=== PATIENT | male | born 1975 | race Caucasian/White ===

== ENCOUNTER 2016-10-01 17:50 | Emergency (ER) | payer SELFPAY ==
[2016-10-01] MEDS ORDERED: Sodium Chloride 0.9% 1,000 ML ONE (17:58)
[2016-10-01] MEDS ORDERED: Pantoprazole 40 MG Vial IVPUSH ONE (18:03)
[2016-10-01] MEDS ORDERED: Sodium Chloride 0.9% 10 ML Syringe FLUSH PRN (18:03)
[2016-10-01] MEDS ORDERED: Sodium Chloride 0.9% 1,000 ML IV ONE (18:03)
--- NOTE | 2016-10-01 18:05 | EDM.PDOC ---
ED HPI GENERAL MEDICAL PROBLEM - General Chief Complaint: General Stated Complaint: "vomiting blood" Time Seen by Provider: 10/01/16 18:00 Source of Information: Reports: Patient History Limitations: Reports: No Limitations - History of Present Illness INITIAL COMMENTS - FREE TEXT/NARRATIVE: History and physical: History of present illness: [Patient comes to the emergency room complaining of nausea and vomiting. He is vomiting coffee ground colored and consistency emesis. He denies any bright red blood in his vomit and in his stools. He has not had fevers or chills. He felt well prior to onset of vomiting this morning and felt well last evening. He has no history of GI bleed or chronic medical conditions. The patient does not have health insurance and he is very concerned about the cost of today's ER visit. His abdomen is tender. He is not having any burning with urination, urinary urgency or hematuria. Denies back pain. He's not had any headaches or dizziness sore throat or neck pain. No swelling to his feet or lower legs. Complains of feeling very dry. He has not been able to tell much food or fluids today due to his vomiting. He has no other complaints or concerns at this time.] Review of Systems: As per history of present illness and below otherwise all systems reviewed and negative. Past medical history: As per history of present illness and as reviewed below otherwise noncontributory. Surgical history: As per history of present illness and is reviewed below other wynne noncontributory. Social history: No reported history of drug abuse. Smokes 1 pack of cigarettes per day. Admits to alcohol use, most recent was September 29. He denies any alcohol use yesterday or today. Family history: As per history of present illness and is reviewed below otherwise noncontributory. Physical exam: HEENT: Atraumatic, normocephalic. Skin appears somewhat bowers colored. Oral mucous membranes and lips are dry. throat is clear. Lungs: Clear to auscultation, breath sounds equal bilaterally. Heart: S1-S2, regular rate and rhythm. negative for clicks, rubs, or murmur. Abdomen: Bowel sounds are normoactive throughout. No emesis while he is in the ER. Abdomen is soft and nondistended. He is tender to palpation over the epigastric area. Negative for masses, guarding and rebound. No hepatosplenomegaly. Negative for costovertebral tenderness. Pelvis: Stable, nontender. Genitourinary: Deferred. Rectal: Deferred. Extremities: His ambulatory without difficulty. Has full range of motion of upper and lower extremities. No swelling or cyanosis to his feet or lower legs. Neurovascular unremarkable. Neuro: Awake, alert, oriented. Motor and sensory unremarkable throughout. Exam nonfocal. Diagnostics: [CBC, CMP, PT/INR, urinalysis, urine drug screen, EKG] Therapeutics: [IV normal saline 2 L bolus, Protonix 80 mg IV, Zofran 4 mg IV] Impression: [Nausea and vomiting ] Plan: [EKG shows normal sinus rhythm. Urine drug screen is negative. Urinalysis shows a moderate amount of blood. White count is 14.7, hemoglobin 15.5, AST 56. patient's nausea improved significantly and he is able to sip water while in the ER. Discussed with patient that he does not appear to be having significant bleeding event but this does not rule out a small GI bleed. Recommend that patient stay overnight for observation and be seen by Dr. mccarty in the morning hospital rounds to discuss the need for an EGD. The patient states that he cannot stay in the hospital overnight and that he does not have health insurance. Offered him that he can work out a payment plan with the financial office tomorrow, in the meantime overnight observation is recommended. He again declined. He is strongly urged to follow-up with a local primary care provider in the next couple of days for reevaluation. He verbalized understanding of this conversation. we also discussed, of course, that if he feels as though he is worsening, or other concerns develop, he may return to the emergency room for reevaluation. He is not sent home with any medications or prescriptions as the cause for his nausea and vomiting is not yet determined and cannot rule out GI bleed.] Definitive disposition and diagnosis is appropriate pending reevaluation and review of above. - Related Data Allergies Allergy/AdvReac Type Severity Reaction Status Date / Time No Known Allergies Allergy Verified 10/01/16 18:01 Home Meds: Home Meds . [No Known Home Meds] 10/01/16 [History] Past Medical History - Past Health History Medical/Surgical History: Denies Medical/Surgical History - Past Surgical History HEENT Surgical History: Reports: Tonsillectomy GI Surgical History: Reports: Appendectomy Other Musculoskeletal Surgeries/Procedures:: right colar bone pin. Social & Family History - Tobacco Use Smoking Status *Q: Current Every Day Smoker Years of Tobacco use: 20 Packs/Tins Daily: 1 - Recreational Drug Use Recreational Drug Use: No ED ROS GENERAL - Review of Systems Review Of Systems: ROS reveals no pertinent complaints other than HPI. ED EXAM, GENERAL - Physical Exam Exam: See Below Course - Vital Signs Last Recorded V/S: Last Vital Signs Temp 97.6 F 10/01/16 17:57 Pulse 96 10/01/16 18:59 Resp 18 10/01/16 17:57 BP 131/69 10/01/16 18:59 Pulse Ox 96 10/01/16 17:57 - Orders/Labs/Meds Orders: Active Orders 24 hr Category Date Time Status EKG Documentation Completion [RC] STAT Care 10/01/16 18:02 Active Sodium Chloride 0.9% [Saline Flush] Med 10/01/16 18:03 Active 10 ml FLUSH ASDIRECTED PRN Saline Lock Insert [OM.PC] Stat Oth 10/01/16 18:02 Ordered Medication Orders Sodium Chloride (Saline Flush) 10 ml FLUSH ASDIRECTED PRN PRN Reason: Keep Vein Open Labs: Laboratory Tests 10/01/16 10/01/16 10/01/16 Range/Units 18:02 18:02 18:02 WBC 14.7 H (5.0-10.0) 10^3/uL RBC 5.00 (4.50-6.00) 10^6/uL Hgb 15.5 (14.0-18.0) g/dL Hct 46.9 (40.0-54.0) % MCV 93.8 (82.0-94.0) fL MCH 31.0 (27.0-32.0) pg MCHC 33.0 (33.0-38.0) g/dL RDW Coeff of Arielle 12.9 (11.0-15.0) % Plt Count 284 (150-400) 10^3/uL Neut % (Auto) 75.7 (35-85) % Lymph % (Auto) 16.9 (10-55) % Jessamine % (Auto) 7.1 (0-16) % Eos % (Auto) 0.1 (0-5) % Baso % (Auto) 0.2 (0-3) % Neut # (Auto) 11.16 H (1.80-7.00) 10^3/uL Lymph # (Auto) 2.49 (1.00-4.80) 10^3/uL Jessamine # (Auto) 1.05 H (0.00-0.80) 10^3/uL Eos # (Auto) 0.01 (0.00-0.45) 10^3/uL Baso # (Auto) 0.03 10^3/uL PT 9.5 L (9.7-12.3) SEC INR 0.88 L (0.92-1.18) Sodium 147 H (136-145) mEq/L Potassium 4.4 (3.5-5.0) mEq/L Chloride 101 (98-106) mEq/L Carbon Dioxide 19 L (21-32) mmol/L BUN 15 (7-18) mg/dL Creatinine 1.1 (0.7-1.3) mg/dL Est Cr Clr Drug Dosing 79.38 mL/min Estimated GFR (MDRD) > 60 (>=60) mL/min Glucose 65 L D (75-99) mg/dL Calcium 9.0 (8.4-10.1) mg/dL Total Bilirubin 0.5 (0.0-1.0) mg/dL AST 56 H (15-37) U/L ALT 35 (12-78) U/L Alkaline Phosphatase 105 (46-116) U/L Total Protein 7.4 (6.4-8.2) g/dL Albumin 4.2 (3.4-5.0) g/dL Urine Color (YELLOW) Urine Appearance (CLEAR) Urine pH (4.5-8.0) Ur Specific Kerens (1.003-1.020) Urine Protein (NEGATIVE) mg/dL Urine Glucose (UA) (NEGATIVE) mg/dL Urine Ketones (NEGATIVE) mg/dL Urine Occult Blood (NEGATIVE) Urine Nitrite (NEGATIVE) Urine Bilirubin (NEGATIVE) Urine Urobilinogen (0.2-1.0) EU/dL Ur Leukocyte Esterase (NEGATIVE) Urine RBC (0-5) /HPF Urine WBC (0-5) /HPF Ur Squamous Epith Cells (NOT SEEN) /HPF Urine Opiates Screen (NEGATIVE) Ur Oxycodone Screen (NEGATIVE) Urine Methadone Screen (NEGATIVE) Ur Barbiturates Screen (NEGATIVE) U Tricyclic Antidepress (NEGATIVE) Ur Phencyclidine Scrn (NEGATIVE) Ur Amphetamine Screen (NEGATIVE) U Methamphetamines Scrn (NEGATIVE) Urine MDMA Screen (NEGATIVE) U Benzodiazepines Scrn (NEGATIVE) Urine Cocaine Screen (NEGATIVE) U Marijuana (THC) Screen (NEGATIVE) 10/01/16 10/01/16 Range/Units 18:02 18:03 WBC (5.0-10.0) 10^3/uL RBC (4.50-6.00) 10^6/uL Hgb (14.0-18.0) g/dL Hct (40.0-54.0) % MCV (82.0-94.0) fL MCH (27.0-32.0) pg MCHC (33.0-38.0) g/dL RDW Coeff of Arielle (11.0-15.0) % Plt Count (150-400) 10^3/uL Neut % (Auto) (35-85) % Lymph % (Auto) (10-55) % Jessamine % (Auto) (0-16) % Eos % (Auto) (0-5) % Baso % (Auto) (0-3) % Neut # (Auto) (1.80-7.00) 10^3/uL Lymph # (Auto) (1.00-4.80) 10^3/uL Jessamine # (Auto) (0.00-0.80) 10^3/uL Eos # (Auto) (0.00-0.45) 10^3/uL Baso # (Auto) 10^3/uL PT (9.7-12.3) SEC INR (0.92-1.18) Sodium (136-145) mEq/L Potassium (3.5-5.0) mEq/L Chloride (98-106) mEq/L Carbon Dioxide (21-32) mmol/L BUN (7-18) mg/dL Creatinine (0.7-1.3) mg/dL Est Cr Clr Drug Dosing mL/min Estimated GFR (MDRD) (>=60) mL/min Glucose (75-99) mg/dL Calcium (8.4-10.1) mg/dL Total Bilirubin (0.0-1.0) mg/dL AST (15-37) U/L ALT (12-78) U/L Alkaline Phosphatase (46-116) U/L Total Protein (6.4-8.2) g/dL Albumin (3.4-5.0) g/dL Urine Color Yellow (YELLOW) Urine Appearance Clear (CLEAR) Urine pH 5.0 (4.5-8.0) Ur Specific Kerens 1.023 H (1.003-1.020) Urine Protein 100 H (NEGATIVE) mg/dL Urine Glucose (UA) Negative (NEGATIVE) mg/dL Urine Ketones 80 H (NEGATIVE) mg/dL Urine Occult Blood Moderate H (NEGATIVE) Urine Nitrite Negative (NEGATIVE) Urine Bilirubin Negative (NEGATIVE) Urine Urobilinogen 0.2 (0.2-1.0) EU/dL Ur Leukocyte Esterase Negative (NEGATIVE) Urine RBC Not seen (0-5) /HPF Urine WBC Not seen (0-5) /HPF Ur Squamous Epith Cells Occasional H (NOT SEEN) /HPF Urine Opiates Screen Negative (NEGATIVE) Ur Oxycodone Screen Negative (NEGATIVE) Urine Methadone Screen Negative (NEGATIVE) Ur Barbiturates Screen Negative (NEGATIVE) U Tricyclic Antidepress Negative (NEGATIVE) Ur Phencyclidine Scrn Negative (NEGATIVE) Ur Amphetamine Screen Negative (NEGATIVE) U Methamphetamines Scrn Negative (NEGATIVE) Urine MDMA Screen Negative (NEGATIVE) U Benzodiazepines Scrn Negative (NEGATIVE) Urine Cocaine Screen Negative (NEGATIVE) U Marijuana (THC) Screen Negative (NEGATIVE) Meds: Medications Generic Name Dose Route Start Last Admin Trade Name Freq PRN Reason Stop Dose Admin Sodium Chloride 10 ml 10/01/16 18:03 Saline Flush FLUSH ASDIRECTED PRN Keep Vein Open Discontinued Medications Generic Name Dose Route Start Last Admin Trade Name Freq PRN Reason Stop Dose Admin Sodium Chloride 1,000 mls @ 999 mls/hr 10/01/16 18:03 10/01/16 18:06 Normal Saline IV 10/01/16 19:03 999 mls/hr STAT ONE Administration Sodium Chloride Confirm 10/01/16 17:58 10/01/16 18:15 Normal Saline Administered 10/01/16 17:59 Not Given Dose 1,000 mls @ as directed .ROUTE .STK-MED ONE Ondansetron HCl 4 mg 10/01/16 18:10 10/01/16 18:15 Zofran IVPUSH 10/01/16 18:11 4 mg ONETIME ONE Administration Pantoprazole Sodium 80 mg 10/01/16 18:03 10/01/16 18:18 Protonix Iv IVPUSH 10/01/16 18:04 80 mg .BOLUS ONE Administration Departure - Departure Time of Disposition: 19:15 Disposition: Home, Self-Care 01 Preliminary Cause of *Q: Sepsis & Multi System Organ Failure Condition: Fair Clinical Impression: Nausea & vomiting Qualifiers: Vomiting type: unspecified Vomiting Intractability: non-intractable Qualified Code(s): R11.2 - Nausea with vomiting, unspecified - Discharge Information Referrals: PCP,None [Primary Care Provider] - Forms: ED Department Discharge Additional Instructions: The following information is given to patients seen in the emergency department who are being discharged home. This information is to outline your options for follow-up care and provides all patient seen in our emergency department with a follow-up referral. The need for follow-up, as well as the timing and circumstances, are variable depending upon the specifics of each emergency department visit. If you don't have a primary care physician on staff, we will provide you with a referral. We always advise to contact your personal physician following an emergency department visit to inform them of the circumstances of the visit and for follow-up with them and/or the need for any referrals to a consulting specialist. The emergency department will also refer you to a specialist when appropriate. This referral assures that you have the opportunity for follow-up care with a specialist. All of these measures are taken in an effort to provide you with optimal care, which includes your follow-up. Under all circumstances we always encourage you to contact your private physician who remains a resource for coordinating your care. When calling for follow-up care, please make the office aware that this follow-up is from your recent emergency room visit. If for any reason you are refused follow-up please contact the [facility] emergency department at [phone] and ask to speak to the emergency department nurse. [facility] [address] [address] Follow-up in above listed clinic in 48-72 hours. Return to ER as needed as discussed. - My Orders Last 24 Hours: My Active Orders 10/01/16 18:02 EKG Documentation Completion [RC] STAT Saline Lock Insert [OM.PC] Stat 10/01/16 18:03 Sodium Chloride 0.9% [Saline Flush] 10 ml FLUSH ASDIRECTED PRN - Assessment/Plan Last 24 Hours: My Active Orders 10/01/16 18:02 EKG Documentation Completion [RC] STAT Saline Lock Insert [OM.PC] Stat 10/01/16 18:03 Sodium Chloride 0.9% [Saline Flush] 10 ml FLUSH ASDIRECTED PRN
[2016-10-01] MEDS ORDERED: Ondansetron 4 MG/2 ML SDV IVPUSH ONE (18:10)
[2016-10-01 18:38] LABS: CHLORIDE,CL 101 mEq/L (98-106); SODIUM,NA 147 mEq/L (136-145)
[2016-10-01 18:59] VITALS: BP 131/69
== END 2016-10-01 19:28 | disposition home or self-care (01) ==
LOC: CC.ED 17:50
DX: R11.2 Nausea with vomiting, unspecified (principal)
CPT/HCPCS: 36415; 80053; 80305; 81001; 85025; 85610; 93005; 96361; 96374; 96375; 99284; C9113; J2405; J7030

== ENCOUNTER 2017-05-13 13:34 | Emergency (ER) | payer SELFPAY ==
[2017-05-13 13:48] VITALS: BP 108/66
[2017-05-13] MEDS ORDERED: Ondansetron 4 MG/2 ML SDV IVPUSH STA (14:08)
[2017-05-13] MEDS ORDERED: Sodium Chloride 0.9% 1,000 ML IV ONE (14:08)
== END 2017-05-13 14:25 | disposition left against medical advice (07) ==
LOC: CC.ED 13:34
DX: Z53.21 Procedure and treatment not carried out due to patient leaving prior to being seen by health care provider (principal)

== ENCOUNTER 2017-05-13 21:25 | Emergency (ER) | payer SELFPAY ==
[2017-05-13] MEDS ORDERED: LORazepam 0.5 MG Tab PO ONE (21:26)
[2017-05-13] MEDS: Lactated Ringers 1,000 ML IV ONE (21:30)
[2017-05-13] MEDS: Ondansetron 4 MG/2 ML SDV IVPUSH PRN (22:04)
[2017-05-13 22:07] LABS: CHLORIDE,CL 96 mEq/L (98-106); SODIUM,NA 137 mEq/L (136-145)
[2017-05-13] MEDS: Sodium Chloride 0.9% 1,000 ML IV ONE (22:40)
--- NOTE | 2017-05-13 22:45 | EDM.PDOC ---
ED HPI GENERAL MEDICAL PROBLEM - General Chief Complaint: Abdominal Pain Stated Complaint: SHAKING, VOMITING Time Seen by Provider: 05/13/17 21:55 Source of Information: Reports: Patient History Limitations: Reports: No Limitations - History of Present Illness INITIAL COMMENTS - FREE TEXT/NARRATIVE: Daniel is a 42 year old male who presents to the ED with complaints of vomiting, dizziness, and weakness. He reports that starting about 4 days ago he started vomiting. He has progressively felt worse. He reports he has been unable to eat or drink since Friday. He reports he feels very weak. Denies any fever, but does report he has had the chills and "can't stop shaking." He also c/o tingling in his hands. Chart review dates the numbness and tingling back to an ED visit in 2016. Denies any diarrhea, abdominal pain, chest pain, shortness of breath, focal neurological deficit, cough, wheezing. He denies any recent alcohol or drug use. Does report occasional alcohol use. Last drank on . He reports he was trying to drive to the ER this evening, but was unable to because of his weakness and dizziness. He pulled over on the side of the road and a passerby gave him a ride to the ER. They did call EMS, but private vehicle made it to the ER before intercept was made. He presented to the ED earlier today, but then subsequently left AMA prior to any lab work or IV start as he was concerned because he did not have insurance. He is very anxious about how he is going to pay for this. He voices that he knows he should've stayed earlier. He does not want much done in regards to imaging and lab work. Onset Date: 05/10/17 Duration: Getting Worse Location: Reports: Abdomen, Generalized (shaking) Associated Symptoms: Reports: Fever/Chills, Loss of Appetite, Nausea/Vomiting, Other (tremors, N/T to BUE). Denies: Confusion, Chest Pain, Cough, cough w sputum, Diaphoresis, Headaches, Malaise, Rash, Seizure, Shortness of Breath, Syncope, Weakness - Related Data Allergies Allergy/AdvReac Type Severity Reaction Status Date / Time No Known Allergies Allergy Verified 05/13/17 21:45 Home Meds: Home Meds Levofloxacin [Levaquin] 500 mg PO DAILY 7 Days tab 05/14/17 [Rx] Ondansetron HCl [Zofran] 4 mg PO Q8H #20 tablet 05/14/17 [Rx] Past Medical History - Past Health History Medical/Surgical History: Denies Medical/Surgical History Gastrointestinal History: Reports: None Genitourinary History: Reports: Renal Calculus Musculoskeletal History: Reports: Fracture - Infectious Disease History Infectious Disease History: Reports: Chicken Pox - Past Surgical History HEENT Surgical History: Reports: Tonsillectomy GI Surgical History: Reports: Appendectomy Male Surgical History: Reports: None Musculoskeletal Surgical History: Reports: ORIF, Other (See Below) Other Musculoskeletal Surgeries/Procedures:: right collar bone pin, right rib fractures Social & Family History - Family History Family Medical History: Noncontributory - Tobacco Use Smoking Status *Q: Current Every Day Smoker Years of Tobacco use: 20 Packs/Tins Daily: 1 - Caffeine Use Caffeine Use: Reports: None - Alcohol Use Days Per Week of Alcohol Use: 2 Number of Drinks Per Day: 4 Total Drinks Per Week: 8 - Recreational Drug Use Recreational Drug Use: No ED ROS GENERAL - Review of Systems Review Of Systems: See Below Constitutional: Reports: Chills, Weakness, Fatigue, Decreased Appetite. Denies : Fever HEENT: Reports: No Symptoms. Denies: Dental Pain, Eye Pain, Rhinitis, Sinus Problem, Throat Pain Respiratory: Reports: No Symptoms. Denies: Shortness of Breath, Wheezing, Pleuritic Chest Pain, Cough, Sputum, Hemoptysis Cardiovascular: Reports: Lightheadedness. Denies: Chest Pain, Blood Pressure Problem, Dyspnea on Exertion, Edema, Syncope Endocrine: Reports: Fatigue GI/Abdominal: Reports: Anorexia, Decreased Appetite, Nausea, Vomiting. Denies: Abdominal Pain, Black Stool, Bloody Stool, Constipation, Diarrhea, Distension, Hematemesis, Hematochezia, Melena : Reports: No Symptoms. Denies: Dysuria, Frequency, Urgency Musculoskeletal: Reports: No Symptoms Skin: Reports: No Symptoms Neurological: Reports: Dizziness, Numbness, Tingling, Tremors, Weakness. Denies : Confusion, Headache, Pre-Existing Deficit, Difficulty Walking Psychiatric: Reports: Anxiety Hematologic/Lymphatic: Reports: No Symptoms Immunologic: Reports: No Symptoms ED EXAM, GI/ABD - Physical Exam Exam: See Below Exam Limited By: No Limitations General Appearance: Alert, WD/WN, Moderate Distress Eyes: Bilateral: EOMI Ears: Normal External Exam, Normal Canal, Hearing Grossly Normal, Normal TMs Nose: Normal Inspection, Normal Mucosa, No Blood Throat/Mouth: Other (dry mucous membranes) Head: Atraumatic, Normocephalic Neck: Normal Inspection, Supple, Non-Tender, Full Range of Motion Respiratory/Chest: No Respiratory Distress, No Accessory Muscle Use, Chest Non- Tender, Decreased Breath Sounds. No: Crackles, Rales, Rhonchi, Wheezing Cardiovascular: Normal Peripheral Pulses, Regular Rate, Rhythm, No Edema, No Gallop, No JVD, No Murmur, No Rub GI/Abdominal Exam: Normal Bowel Sounds, Soft, Non-Tender, No Distention. No: Guarding, Rigid, Rebound, Hepatomegaly, Splenomegaly Back Exam: Normal Inspection, Full Range of Motion. No: CVA Tenderness (L), CVA Tenderness (R) Extremities: Normal Inspection, Normal Range of Motion, Non-Tender, Normal Capillary Refill, No Pedal Edema Neurological: Alert, Oriented, CN II-XII Intact, Normal Cognition, Normal Gait, Normal Reflexes, No Motor/Sensory Deficits, Other (tremor to BUE) Psychiatric: Anxious Skin Exam: Warm, Dry, Intact, Normal Color, No Rash Lymphatic: No Adenopathy Course - Vital Signs Last Recorded V/S: Last Vital Signs Temp 96.7 F 05/13/17 21:42 Pulse 101 H 05/13/17 21:42 Resp 24 H 05/13/17 21:42 BP 142/80 H 05/13/17 23:18 Pulse Ox 98 05/13/17 21:42 - Orders/Labs/Meds Orders: Active Orders 24 hr Category Date Time Status Abdomen Ltd [US] Stat Exams 05/13/17 22:47 Taken Labs: Laboratory Tests 05/13/17 05/13/17 05/13/17 Range/Units 21:53 21:53 22:48 WBC 15.6 H (5.0-10.0) 10^3/uL RBC 5.01 (4.50-6.00) 10^6/uL Hgb 16.1 (14.0-18.0) g/dL Hct 46.6 (40.0-54.0) % MCV 93.0 (82.0-94.0) fL MCH 32.1 H (27.0-32.0) pg MCHC 34.5 (33.0-38.0) g/dL RDW Coeff of Arielle 13.4 (11.0-15.0) % Plt Count 267 (150-400) 10^3/uL Neut % (Auto) 81.0 (35-85) % Lymph % (Auto) 8.7 L (10-55) % [place] % (Auto) 10.2 (0-16) % Eos % (Auto) 0 (0-5) % Baso % (Auto) 0.1 (0-3) % Neut # (Auto) 12.63 H (1.80-7.00) 10^3/uL Lymph # (Auto) 1.36 (1.00-4.80) 10^3/uL [place] # (Auto) 1.59 H (0.00-0.80) 10^3/uL Eos # (Auto) 0.00 (0.00-0.45) 10^3/uL Baso # (Auto) 0.02 10^3/uL Sodium 137 (136-145) mEq/L Potassium 3.6 (3.5-5.0) mEq/L Chloride 96 L (98-106) mEq/L Carbon Dioxide 25 (21-32) mmol/L BUN 15 (7-18) mg/dL Creatinine 1.6 H (0.7-1.3) mg/dL Est Cr Clr Drug Dosing 55.30 mL/min Estimated GFR (MDRD) 48 L (>=60) mL/min Glucose 167 H D (75-99) mg/dL Calcium 9.5 (8.4-10.1) mg/dL Magnesium 1.5 L (1.8-2.4) mg/dL Total Bilirubin 2.2 H (0.0-1.0) mg/dL AST 98 H (15-37) U/L ALT 52 (12-78) U/L Alkaline Phosphatase 131 H (46-116) U/L C-Reactive Protein < 0.2 L (0.2-0.8) mg/dL Total Protein 6.6 (6.4-8.2) g/dL Albumin 3.6 (3.4-5.0) g/dL Urine Color [place] (YELLOW) Urine Appearance Clear (CLEAR) Urine pH 8.5 H (4.5-8.0) Ur Specific [place] 1.015 (1.003-1.020) Urine Protein 30 H (NEGATIVE) mg/dL Urine Glucose (UA) Negative (NEGATIVE) mg/dL Urine Ketones Negative (NEGATIVE) mg/dL Urine Occult Blood Negative (NEGATIVE) Urine Nitrite Negative (NEGATIVE) Urine Bilirubin Negative (NEGATIVE) Urine Urobilinogen 0.2 (0.2-1.0) EU/dL Ur Leukocyte Esterase Negative (NEGATIVE) Urine RBC 0-5 (0-5) /HPF Urine WBC Not seen (0-5) /HPF Ur Epithelial Cells Few H (NOT SEEN) /HPF Meds: Medications Discontinued Medications Generic Name Dose Route Start Last Admin Trade Name Freq PRN Reason Stop Dose Admin Ceftriaxone Sodium 1 gm 05/14/17 00:12 05/14/17 00:20 Rocephin IVPUSH 05/14/17 00:13 1 gm ONETIME ONE Administration Lactated Ringer's 1,000 mls @ 999 mls/hr 05/13/17 21:30 05/13/17 21:30 Ringers, Lactated IV 05/13/17 22:30 999 mls/hr .BOLUS ONE Administration Magnesium Sulfate/Dextrose 1 100 mls @ 100 mls/hr 05/13/17 22:15 05/13/17 22: 59 gm/ Premix IV 05/13/17 23:14 100 mls/hr ONETIME ONE Administration Sodium Chloride 1,000 mls @ 500 mls/hr 05/13/17 22:36 05/13/17 22:40 Normal Saline IV 05/14/17 00:35 500 mls/hr .BOLUS ONE Administration Lorazepam 1 packet 05/14/17 00:18 05/14/17 00:29 Take Home: Lorazepam 0.5 Mg, 2 Tab Pack PO 05/14/17 00:19 1 packet ONETIME ONE Administration Lorazepam 1 mg 05/13/17 21:26 Ativan PO 05/13/17 21:27 .STK-MED ONE Ondansetron HCl 4 mg 05/13/17 22:01 05/13/17 22:04 Zofran IVPUSH 4 mg Q6H PRN Administration Nausea/Vomiting - Re-Assessments/Exams Free Text/Narrative Re-Assessment/Exam: Discussed lab results with patient. Discussed that I would like to do imaging to better figure out what is going on. Patient does not want extensive imaging. Agreed to US of abdomen to r/o pancreatitis and cholecystitis given elevated bilirubin. Patient continues to deny any abdominal pain. US abdomen WNL per radiographer angiogram. Do not have final radiologist report. His nausea and shaking improved greatly with IVF. Discussed that I would like to get CXR given elevated WBC and decreased breath sounds, to which patient refused. I strongly encourage patient to let us admit him to overnight observation for continued IVF and treatment. Patient refused this. He wishes to go home as he does not feel he can pay for services. He reports he is feeling much better after receiving fluids and nausea medication. Continues to feel weak and fatigued. He has not been able to sleep in the last few days. He is requesting something to help him sleep tonight. Discussed that since we don't have an obvious source of infection and he does not want any additional labs or imaging, we will treat with broad spectrum antibiotics given neutrophilic leukocytosis. Patient agreeable to this. He refuses to stay here and refuses to have any further workup due to cost. Departure - Departure Time of Disposition: 00:36 Disposition: Home, Self-Care 01 Clinical Impression: Bronchiolitis, Acute renal insufficiency, Gastroenteritis - Discharge Information Prescriptions: Levofloxacin [Levaquin] 500 mg PO DAILY 7 Days tab Ondansetron HCl [Zofran] 4 mg PO Q8H #20 tablet Instructions: Acute Bronchitis, Adult, Nausea and Vomiting, Adult, [id number] , Acute Bronchitis, Adult, [id number] Referrals: PCP,None [Primary Care Provider] - Forms: ED Department Discharge Additional Instructions: Meds as prescribed Push fluids as much as possible Zofran as needed for nausea. Take prior to oral intake. 2 doses of ativan sent with patient. Instructed to take 1 tab at night. Recommend clear liquid diet until nausea resolves. Then start introducing bland diet, such as toast and crackers. Advance diet as tolerated. Return to clinic if symptoms worsen or do not improve. Notify clinic if no improvement in symptoms. - My Orders Last 24 Hours: My Active Orders 05/13/17 22:47 Abdomen Ltd [US] Stat - Assessment/Plan Last 24 Hours: My Active Orders 05/13/17 22:47 Abdomen Ltd [US] Stat
[2017-05-13 23:18] VITALS: BP 142/80
[2017-05-14] MEDS: cefTRIAXone 1 GM Vial IVPUSH ONE (00:20)
[2017-05-14] MEDS: Take Home: LORazepam 0.5 MG Tab, 2 Tab Pack PO ONE (00:29)
== END 2017-05-14 01:05 | disposition home or self-care (01) ==
LOC: CC.ED 21:25
DX: K52.9 Noninfective gastroenteritis and colitis, unspecified (principal); J21.9 Acute bronchiolitis, unspecified; N28.9 Disorder of kidney and ureter, unspecified; Z79.899 Other long term (current) drug therapy; F17.210 Nicotine dependence, cigarettes, uncomplicated
CPT/HCPCS: 36415; 76705; 80053; 81001; 83735; 85025; 86140; 96361; 96365; 96375; 99285; A9270-GY; J0696; J2405; J3475; J7030; J7120

== ENCOUNTER 2018-05-04 13:40 | Emergency (ER) | payer SELFPAY ==
[2018-05-04] MEDS: Lactated Ringers 1,000 ML IV SCH (14:24)
[2018-05-04] MEDS: Ondansetron 4 MG/2 ML SDV IVPUSH PRN (14:28)
--- NOTE | 2018-05-04 14:31 | EDM.PDOC ---
ED HPI GENERAL MEDICAL PROBLEM - General Chief Complaint: General Stated Complaint: "I think I am going to faint" Time Seen by Provider: 05/04/18 13:55 Source of Information: Reports: Patient History Limitations: Reports: No Limitations - History of Present Illness INITIAL COMMENTS - FREE TEXT/NARRATIVE: Patient presents to ER with "not feeling well". He feels lightheaded, felt like he was going to faint. Relates he awoke at 5 am today with concerns of nausea. Has not been able to eat today as a result. Has been trying to drink water but vomits it up. "feels like my heart is racing". He had a headache last evening/early am but that is now gone. No diarrhea. No abdominal pain. No fevers. Denies cough, shortness of breath or chest pain. Was at home yesterday. No alcohol consumption. 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 Onset: Today Duration: Hour(s): Location: Reports: Generalized Severity: Moderate Associated Symptoms: Reports: Headaches, Loss of Appetite, Nausea/Vomiting, Syncope, Weakness. Denies: Confusion, Chest Pain, Cough, Fever/Chills, Shortness of Breath - Related Data Allergies Allergy/AdvReac Type Severity Reaction Status Date / Time No Known Allergies Allergy Verified 05/04/18 13:49 Home Meds: Home Meds . [No Known Home Meds] 05/04/18 [History] Past Medical History - Past Health History Medical/Surgical History: Denies Medical/Surgical History Gastrointestinal History: Reports: None Genitourinary History: Reports: Renal Calculus Musculoskeletal History: Reports: Fracture - Infectious Disease History Infectious Disease History: Reports: Chicken Pox - Past Surgical History HEENT Surgical History: Reports: Tonsillectomy GI Surgical History: Reports: Appendectomy Male Surgical History: Reports: None Musculoskeletal Surgical History: Reports: ORIF, Other (See Below) Other Musculoskeletal Surgeries/Procedures:: right collar bone pin, right rib fractures Social & Family History - Family History Family Medical History: Noncontributory - Caffeine Use Caffeine Use: Reports: None ED ROS GENERAL - Review of Systems Review Of Systems: See Below Constitutional: Reports: Malaise, Weakness, Fatigue, Decreased Appetite. Denies : Fever, Chills, Diaphoresis HEENT: Denies: Ear Pain, Rhinitis, Throat Pain, Vertigo, Vision Change Respiratory: Denies: Shortness of Breath, Cough Cardiovascular: Reports: Lightheadedness. Denies: Chest Pain, Edema Endocrine: Reports: Fatigue GI/Abdominal: Reports: Nausea, Vomiting. Denies: Abdominal Pain, Constipation, Diarrhea : Reports: No Symptoms Musculoskeletal: Reports: No Symptoms Skin: Reports: No Symptoms Neurological: Reports: Headache, Syncope, Weakness ED EXAM, GENERAL - Physical Exam Exam: See Below Exam Limited By: No Limitations General Appearance: Alert, WD/WN, No Apparent Distress Ears: Normal External Exam, Normal TMs Nose: Normal Inspection, Normal Mucosa, No Blood Throat/Mouth: Normal Inspection, Normal Oropharynx Head: Normocephalic Neck: Normal Inspection, Supple, Non-Tender Respiratory/Chest: No Respiratory Distress, Lungs Clear, Normal Breath Sounds Cardiovascular: Regular Rate, Rhythm GI/Abdominal: Normal Bowel Sounds, Soft, Non-Tender Extremities: Normal Inspection, Normal Capillary Refill Neurological: Alert, Oriented Skin Exam: Warm, Dry Course - Vital Signs Last Recorded V/S: Last Vital Signs Temp 96.6 F 05/04/18 14:49 Pulse 102 H 05/04/18 14:49 Resp 20 05/04/18 14:49 BP 149/77 H 05/04/18 14:49 Pulse Ox 97 05/04/18 14:49 - Orders/Labs/Meds Orders: Active Orders 24 hr Category Date Time Status Abdomen 2V AP Flat Upright [CR] Stat Exams 05/04/18 14:42 Taken Lactated Ringers [Ringers, Lactated] 1,000 ml Med 05/04/18 14:15 Active IV ASDIRECTED Ondansetron [Zofran] Med 05/04/18 14:10 Active 4 mg IVPUSH Q6H PRN Medication Orders Lactated Ringer's (Ringers, Lactated) 1,000 mls @ 250 mls/hr IV ASDIRECTED WARNER Last Admin: 05/04/18 14:24 Dose: 250 mls/hr Ondansetron HCl (Zofran) 4 mg IVPUSH Q6H PRN PRN Reason: Nausea Last Admin: 05/04/18 14:28 Dose: 4 mg Labs: Laboratory Tests 05/04/18 05/04/18 05/04/18 Range/Units 13:57 14:05 14:10 WBC 18.8 H (5.0-10.0) 10^3/uL RBC 4.44 L (4.50-6.00) 10^6/uL Hgb 14.0 (14.0-18.0) g/dL Hct 43.1 (40.0-54.0) % MCV 97.1 H (82.0-94.0) fL MCH 31.5 (27.0-32.0) pg MCHC 32.5 L (33.0-38.0) g/dL RDW Coeff of Arielle 13.7 (11.0-15.0) % Plt Count 394 (150-400) 10^3/uL Add Manual Diff Yes Neutrophils % (Manual) 81 (35-85) % Band Neutrophils % 1 (0-5) % Lymphocytes % (Manual) 10 L (21-55) % Monocytes % (Manual) 8 (2-12) % Vacuolated Monocytes 1+ slight H (NOT SEEN) D-Dimer, Quantitative 0.87 H (0.00-0.50) Sodium 141 (136-145) mEq/L Potassium 4.4 D (3.5-5.0) mEq/L Chloride 102 (98-106) mEq/L Carbon Dioxide 14 L D (21-32) mmol/L BUN 21 H (7-18) mg/dL Creatinine 1.0 (0.7-1.3) mg/dL Est Cr Clr Drug Dosing 91.66 mL/min Estimated GFR (MDRD) > 60 (>=60) mL/min Glucose 49 L D (75-99) mg/dL Calcium 8.6 (8.4-10.1) mg/dL Lactate Dehydrogenase 157 (100-190) U/L Creatine Kinase 115 (35-232) U/L Troponin I < 0.017 (0.00-0.06) ng/mL C-Reactive Protein 0.3 (0.2-0.8) mg/dL Urine Color (YELLOW) Urine Appearance (CLEAR) Urine pH (4.5-8.0) Ur Specific [place] (1.003-1.020) Urine Protein (NEGATIVE) mg/dL Urine Glucose (UA) (NEGATIVE) mg/dL Urine Ketones (NEGATIVE) mg/dL Urine Occult Blood (NEGATIVE) Urine Nitrite (NEGATIVE) Urine Bilirubin (NEGATIVE) Urine Urobilinogen (0.2-1.0) EU/dL Ur Leukocyte Esterase (NEGATIVE) Urine RBC (0-5) /HPF Urine WBC (0-5) /HPF Urine Bacteria (NOT SEEN) /HPF Urine Opiates Screen (NEGATIVE) Ur Oxycodone Screen (NEGATIVE) Urine Methadone Screen (NEGATIVE) Ur Barbiturates Screen (NEGATIVE) U Tricyclic Antidepress (NEGATIVE) Ur Phencyclidine Scrn (NEGATIVE) Ur Amphetamine Screen (NEGATIVE) U Methamphetamines Scrn (NEGATIVE) Urine MDMA Screen (NEGATIVE) U Benzodiazepines Scrn (NEGATIVE) Urine Cocaine Screen (NEGATIVE) U Marijuana (THC) Screen (NEGATIVE) 05/04/18 05/04/18 Range/Units 14:50 14:50 WBC (5.0-10.0) 10^3/uL RBC (4.50-6.00) 10^6/uL Hgb (14.0-18.0) g/dL Hct (40.0-54.0) % MCV (82.0-94.0) fL MCH (27.0-32.0) pg MCHC (33.0-38.0) g/dL RDW Coeff of Arielle (11.0-15.0) % Plt Count (150-400) 10^3/uL Add Manual Diff Neutrophils % (Manual) (35-85) % Band Neutrophils % (0-5) % Lymphocytes % (Manual) (21-55) % Monocytes % (Manual) (2-12) % Vacuolated Monocytes (NOT SEEN) D-Dimer, Quantitative (0.00-0.50) Sodium (136-145) mEq/L Potassium (3.5-5.0) mEq/L Chloride (98-106) mEq/L Carbon Dioxide (21-32) mmol/L BUN (7-18) mg/dL Creatinine (0.7-1.3) mg/dL Est Cr Clr Drug Dosing mL/min Estimated GFR (MDRD) (>=60) mL/min Glucose (75-99) mg/dL Calcium (8.4-10.1) mg/dL Lactate Dehydrogenase (100-190) U/L Creatine Kinase (35-232) U/L Troponin I (0.00-0.06) ng/mL C-Reactive Protein (0.2-0.8) mg/dL Urine Color Yellow (YELLOW) Urine Appearance Clear (CLEAR) Urine pH 5.0 (4.5-8.0) Ur Specific [place] >= 1.030 H (1.003-1.020) Urine Protein 30 H (NEGATIVE) mg/dL Urine Glucose (UA) Negative (NEGATIVE) mg/dL Urine Ketones 80 H (NEGATIVE) mg/dL Urine Occult Blood Small H (NEGATIVE) Urine Nitrite Negative (NEGATIVE) Urine Bilirubin Negative (NEGATIVE) Urine Urobilinogen 0.2 (0.2-1.0) EU/dL Ur Leukocyte Esterase Negative (NEGATIVE) Urine RBC 0-5 (0-5) /HPF Urine WBC Not seen (0-5) /HPF Urine Bacteria Few H (NOT SEEN) /HPF Urine Opiates Screen Negative (NEGATIVE) Ur Oxycodone Screen Negative (NEGATIVE) Urine Methadone Screen Negative (NEGATIVE) Ur Barbiturates Screen Negative (NEGATIVE) U Tricyclic Antidepress Negative (NEGATIVE) Ur Phencyclidine Scrn Negative (NEGATIVE) Ur Amphetamine Screen Negative (NEGATIVE) U Methamphetamines Scrn Negative (NEGATIVE) Urine MDMA Screen Negative (NEGATIVE) U Benzodiazepines Scrn Negative (NEGATIVE) Urine Cocaine Screen Negative (NEGATIVE) U Marijuana (THC) Screen Negative (NEGATIVE) Meds: Medications Generic Name Dose Route Start Last Admin Trade Name Freq PRN Reason Stop Dose Admin Lactated Ringer's 1,000 mls @ 250 mls/hr 05/04/18 14:15 05/04/18 14:24 Ringers, Lactated IV 250 mls/hr ASDIRECTED WARNER Administration Ondansetron HCl 4 mg 05/04/18 14:10 05/04/18 14:28 Zofran IVPUSH 4 mg Q6H PRN Administration Nausea - Re-Assessments/Exams Free Text/Narrative Re-Assessment/Exam: 05/04/18 Lab results reviewed. Patient's blood sugar low. Urine shows a specific gravity of greater than 1.030. LR infusing. Did have large liquid emesis, Zofran given 1530-Patient feeling better. Was given juice after the Zofran and tolerated well. Blood sugar now in the 90s. 05/04/18 16:53 Patient doing well. No further nausea. Will give him some toast, see how he tolerates and discharge home. Departure - Departure Time of Disposition: 16:54 Disposition: Home, Self-Care 01 Condition: Good Clinical Impression: Gastroenteritis - Discharge Information *PRESCRIPTION DRUG MONITORING PROGRAM REVIEWED*: No *COPY OF PRESCRIPTION DRUG MONITORING REPORT IN PATIENT SHAISTA: No Forms: ED Department Discharge Additional Instructions: 1. Push fluids 2. Small frequent meals 3. Zofran 4 mg every 6 hours as needed for nausea/vomiting 4. Follow up if persisting concerns. - My Orders Last 24 Hours: My Active Orders 05/04/18 14:10 Ondansetron [Zofran] 4 mg IVPUSH Q6H PRN 05/04/18 14:15 Lactated Ringers [Ringers, Lactated] 1,000 ml IV ASDIRECTED 05/04/18 14:42 Abdomen 2V AP Flat Upright [CR] Stat - Assessment/Plan Last 24 Hours: My Active Orders 05/04/18 14:10 Ondansetron [Zofran] 4 mg IVPUSH Q6H PRN 05/04/18 14:15 Lactated Ringers [Ringers, Lactated] 1,000 ml IV ASDIRECTED 05/04/18 14:42 Abdomen 2V AP Flat Upright [CR] Stat
[2018-05-04 14:34] LABS: CHLORIDE,CL 102 mEq/L (98-106); SODIUM,NA 141 mEq/L (136-145)
[2018-05-04 14:49] VITALS: BP 149/77
== END 2018-05-04 17:28 | disposition home or self-care (01) ==
LOC: CC.ED 13:40
DX: K52.9 Noninfective gastroenteritis and colitis, unspecified (principal)
CPT/HCPCS: 36415; 74019; 80048; 80305-QW; 81001; 82550; 82962; 83615; 84484; 85025; 85379; 86140; 93005; 96361; 96374; 99284; J2405; J7120

== ENCOUNTER 2018-08-27 11:34 | Observation (INO) | payer SELFPAY ==
[2018-08-27] MEDS ORDERED: Promethazine 25 MG in Sodium Chloride 0.9% 50 ML IV PRN (11:51)
--- NOTE | 2018-08-27 12:03 | EDM.PDOC ---
ED HPI GENERAL MEDICAL PROBLEM - General Chief Complaint: General Stated Complaint: increased pulse; sweaty Time Seen by Provider: 08/27/18 11:43 Source of Information: Reports: Patient History Limitations: Reports: No Limitations - History of Present Illness INITIAL COMMENTS - FREE TEXT/NARRATIVE: Patient presents to ER per EMS with complaints of dizziness, weakness. States has been having issues with vertigo for the last 3 days. 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 Was diagnosed with vertigo, started on meclizine and was here yesterday for canalith repositioning. He did feel that helped him somewhat. Was out mowing his lawn this am "when it hit really bad again". He admits he has not taken his meclizine today, was advised to by EMS and feels it is a little better now. States "it feels awful, start to panic then and hyperventilate". He does have a headache now. No chest pain. No fevers. No shortness of breath. Has had considerable nausea, no vomiting. Denies any double or blurred vision but the "room spins". No weakness in arms or legs. Onset: Gradual Duration: Day(s):, Waxing/Waning Location: Reports: Head Severity: Moderate Improves with: Reports: Medication, Other (canalith repositioning) Worsens with: Reports: Movement Associated Symptoms: Reports: Headaches, Nausea/Vomiting, Weakness. 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) - Related Data Allergies Allergy/AdvReac Type Severity Reaction Status Date / Time No Known Allergies Allergy Verified 08/27/18 11:42 Home Meds: Home Meds Meclizine HCl [Motion Sickness Relief] 1 tab PO TID PRN 08/27/18 [History] Past Medical History - Past Health History Medical/Surgical History: Denies Medical/Surgical History Gastrointestinal History: Reports: None Genitourinary History: Reports: Renal Calculus Musculoskeletal History: Reports: Fracture - Infectious Disease History Infectious Disease History: Reports: Chicken Pox - Past Surgical History HEENT Surgical History: Reports: Tonsillectomy GI Surgical History: Reports: Appendectomy Male Surgical History: Reports: None Musculoskeletal Surgical History: Reports: ORIF, Other (See Below) Other Musculoskeletal Surgeries/Procedures:: right collar bone pin, right rib fractures Social & Family History - Family History Family Medical History: Noncontributory - Tobacco Use Smoking Status *Q: Current Every Day Smoker - Caffeine Use Caffeine Use: Reports: None ED ROS GENERAL - Review of Systems Review Of Systems: See Below Constitutional: Reports: Malaise, Weakness, Fatigue. Denies: Fever, Chills, Decreased Appetite HEENT: Reports: Vertigo. Denies: Ear Pain, Rhinitis, Throat Pain, Vision Change Respiratory: Denies: Shortness of Breath, Cough Cardiovascular: Reports: Lightheadedness. Denies: Chest Pain, Edema Endocrine: Reports: Fatigue GI/Abdominal: Reports: Nausea. Denies: Abdominal Pain, Vomiting : Reports: No Symptoms Musculoskeletal: Reports: No Symptoms Skin: Reports: No Symptoms Neurological: Reports: Dizziness, Headache, Weakness Psychiatric: Reports: Anxiety ED EXAM, GENERAL - Physical Exam Exam: See Below Exam Limited By: No Limitations General Appearance: Alert, WD/WN, No Apparent Distress Ears: Normal External Exam, Normal TMs Nose: Normal Inspection, Normal Mucosa, No Blood Throat/Mouth: Normal Inspection, Normal Oropharynx Head: Normocephalic Neck: Normal Inspection, Supple, Non-Tender Respiratory/Chest: No Respiratory Distress, Lungs Clear, Normal Breath Sounds Cardiovascular: Regular Rate, Rhythm GI/Abdominal: Normal Bowel Sounds, Soft, Non-Tender Extremities: Normal Inspection, No Pedal Edema Neurological: Alert, Oriented Psychiatric: Anxious Skin Exam: Warm, Dry Course - Vital Signs Last Recorded V/S: Last Vital Signs Temp 99 F 08/27/18 11:34 Pulse 77 08/27/18 11:34 Resp 18 08/27/18 11:34 BP 132/88 08/27/18 11:34 Pulse Ox 98 08/27/18 11:34 - Orders/Labs/Meds Orders: Active Orders 24 hr Category Date Time Status Patient Status Manage Transfer [TRANSFER] Routine ADT 08/27/18 12:22 Ordered Telemetry Monitoring [Cardiac Monitoring] [RC] . Care 08/27/18 11:29 Active DIRECTED Chest 1V Frontal [CR] Stat Exams 08/27/18 11:29 Taken Head wo Cont [CT] Stat Exams 08/27/18 11:55 Taken Lactated Ringers [Ringers, Lactated] 1,000 ml Med 08/27/18 12:00 Active IV ASDIRECTED Promethazine [Phenergan] 25 mg Med 08/27/18 11:51 Active Sodium Chloride 0.9% [Normal Saline] 50 ml IV Q6H Resuscitation Status Routine Resus Stat 08/27/18 12:23 Ordered EKG 12 Lead [EK] Routine Ther 08/27/18 11:29 Ordered Medication Orders Promethazine HCl 25 mg/ Sodium (Chloride) 51 mls @ 100 mls/hr IV Q6H PRN PRN Reason: Dizziness Last Admin: 08/27/18 11:57 Dose: 100 mls/hr Lactated Ringer's (Ringers, Lactated) 1,000 mls @ 125 mls/hr IV ASDIRECTED [facility] Labs: Laboratory Tests 08/27/18 08/27/18 08/27/18 Range/Units 11:42 11:42 11:42 WBC 17.7 H (5.0-10.0) 10^3/uL RBC 5.01 (4.50-6.00) 10^6/uL Hgb 15.9 (14.0-18.0) g/dL Hct 45.8 (40.0-54.0) % MCV 91.4 (82.0-94.0) fL MCH 31.7 (27.0-32.0) pg MCHC 34.7 (33.0-38.0) g/dL RDW Coeff of Arielle 12.8 (11.0-15.0) % Plt Count 339 (150-400) 10^3/uL Neut % (Auto) 78.9 (35-85) % Lymph % (Auto) 15.1 (10-55) % [place] % (Auto) 5.7 (0-16) % Eos % (Auto) 0.2 (0-5) % Baso % (Auto) 0.1 (0-3) % Neut # (Auto) 13.96 H (1.80-7.00) 10^3/uL Lymph # (Auto) 2.66 (1.00-4.80) 10^3/uL [place] # (Auto) 1.00 H (0.00-0.80) 10^3/uL Eos # (Auto) 0.03 (0.00-0.45) 10^3/uL Baso # (Auto) 0.02 10^3/uL PT 10.5 (9.7-12.3) SEC INR 1.02 (0.92-1.18) APTT 27.6 (23.2-32.3) SEC Sodium 141 (136-145) mEq/L Potassium 4.0 (3.5-5.0) mEq/L Chloride 106 (98-106) mEq/L Carbon Dioxide 23 D (21-32) mmol/L BUN 14 (7-18) mg/dL Creatinine 1.1 (0.7-1.3) mg/dL Est Cr Clr Drug Dosing TNP Estimated GFR (MDRD) > 60 (>=60) mL/min Glucose 93 D (75-99) mg/dL Calcium 9.0 (8.4-10.1) mg/dL Lactate Dehydrogenase 169 (100-190) U/L Creatine Kinase 79 (35-232) U/L Troponin I < 0.017 (0.00-0.06) ng/mL Meds: Medications Generic Name Dose Route Start Last Admin Trade Name Freq PRN Reason Stop Dose Admin Promethazine HCl 25 mg/ Sodium 51 mls @ 100 mls/hr 08/27/18 11:51 08/27/18 11 :57 Chloride IV 100 mls/hr Q6H PRN Administration Dizziness Lactated Ringer's 1,000 mls @ 125 mls/hr 08/27/18 12:00 Ringers, Lactated IV ASDIRECTED WARNER - Re-Assessments/Exams Free Text/Narrative Re-Assessment/Exam: 08/27/18 12:27 Labs noted. WBC is elevated at 17.7, CRP and BMP all normal. EKG and troponin normal. Awaiting CT scan report. Will admit observation. IV fluids, meds and PT for canalith repositioning if patient able to tolerate. Dr. Helton aware of admission and agrees with plan. Departure - Departure Time of Disposition: 12:28 Disposition: Refer to Observation Condition: Fair Clinical Impression: Vertigo - Discharge Information *PRESCRIPTION DRUG MONITORING PROGRAM REVIEWED*: No *COPY OF PRESCRIPTION DRUG MONITORING REPORT IN PATIENT SHAISTA: No Forms: ED Department Discharge - Problem List & Annotations (1) Vertigo SNOMED Code(s): 646643182 Code(s): R42 - DIZZINESS AND GIDDINESS Status: Acute Priority: High Current Visit: Yes - Problem List Review Problem List Initiated/Reviewed/Updated: Yes - My Orders Last 24 Hours: My Active Orders 08/27/18 11:29 Telemetry Monitoring [Cardiac Monitoring] [RC] . DIRECTED Chest 1V Frontal [CR] Stat EKG 12 Lead [EK] Routine 08/27/18 11:51 Promethazine [Phenergan] 25 mg Sodium Chloride 0.9% [Normal Saline] 50 ml IV Q6H 08/27/18 11:55 Head wo Cont [CT] Stat 08/27/18 12:00 Lactated Ringers [Ringers, Lactated] 1,000 ml IV ASDIRECTED 08/27/18 12:22 Patient Status Manage Transfer [TRANSFER] Routine 08/27/18 12:23 Resuscitation Status Routine - Assessment/Plan Admission H&P: Please use this note as an admission H&P Last 24 Hours: My Active Orders 08/27/18 11:29 Telemetry Monitoring [Cardiac Monitoring] [RC] . DIRECTED Chest 1V Frontal [CR] Stat EKG 12 Lead [EK] Routine 08/27/18 11:51 Promethazine [Phenergan] 25 mg Sodium Chloride 0.9% [Normal Saline] 50 ml IV Q6H 08/27/18 11:55 Head wo Cont [CT] Stat 08/27/18 12:00 Lactated Ringers [Ringers, Lactated] 1,000 ml IV ASDIRECTED 08/27/18 12:22 Patient Status Manage Transfer [TRANSFER] Routine 08/27/18 12:23 Resuscitation Status Routine Assessment:: Vertigo Plan: Admit observation
[2018-08-27 12:06] LABS: CHLORIDE,CL 106 mEq/L (98-106); SODIUM,NA 141 mEq/L (136-145)
[2018-08-27] MEDS ORDERED: Sodium Chloride 0.9% 10 ML Syringe FLUSH PRN (12:46)
[2018-08-27] MEDS ORDERED: Ondansetron 4 MG/2 ML SDV IV PRN (12:46)
[2018-08-27] MEDS ORDERED: Ondansetron 4 MG Tab.DIS PO PRN (12:46)
[2018-08-27] MEDS ORDERED: Promethazine 25 MG Tab PO PRN (12:46)
[2018-08-27] MEDS: Lactated Ringers 1,000 ML IV SCH ×2 (12:57→19:58)
[2018-08-27] MEDS ORDERED: MECLIZINE 12.5 MG PO SCH (14:00)
[2018-08-27] MEDS: MECLIZINE 25 MG PO SCH ×2 (14:28→19:58)
[2018-08-28] MEDS: MECLIZINE 25 MG PO SCH (07:32)
[2018-08-28 07:55] VITALS: BP 133/78
--- NOTE | 2018-08-28 08:00 | PCM.DCSUM1 ---
Discharge Summary - Hospital Course HPI Initial Comments: Daniel is a 43 year old male who was admitted to the hospital from the ED yesterday 08/27/2018. He had had a couple episodes of severe vertigo, to the point where he couldn't walk. He was admitted and given IV Phenergan and IVF. PT did see and performed canlith repositioning. He reports he has not had any episodes of vertigo since admission. Wishes to discharge home. He will be discharged home on his oral meclizine to be taken three times daily as needed. He is advised to follow up with his PCP in the next 1-2 weeks to recheck his lab work. Lab work reveals elevated WBC, which has been chronically elevated for the past few years, but otherwise stable. - Discharge Data Discharge Date: 08/28/18 Discharge Disposition: Home, Self-Care 01 Condition: Good - Discharge Diagnosis/Problem(s) (1) Vertigo SNOMED Code(s): 148547438 ICD Code: R42 - DIZZINESS AND GIDDINESS Status: Acute Priority: High Current Visit: Yes - Patient Summary/Data Consults: Consultations 08/27/18 12:46 PT Evaluation and Treatment [CONS] Routine - Patient Instructions Diet: Usual Diet as Tolerated Activity: As Tolerated, No Strenuous Activities, Rest and Relax Today Activity, Other: No sudden neck movements/turning neck for next week, Sleep in upright pos - Discharge Plan *PRESCRIPTION DRUG MONITORING PROGRAM REVIEWED*: No *COPY OF PRESCRIPTION DRUG MONITORING REPORT IN PATIENT SHAISTA: No Home Medications: Home Meds Meclizine HCl [Motion Sickness Relief] 1 tab PO TID PRN 08/27/18 [History] Patient Handouts: Benign Positional Vertigo Forms: ED Department Discharge Referrals: Kristi Rebolledo PA [Emergency Provider] - - Discharge Summary/Plan Comment DC Time >30 min.: No Discharge Summary/Plan Comment: - Continue Meclizine three times daily as needed - Recommend sleeping in upright position the next few nights - Rest and take it easy the next few days - Avoid sudden movements of head/neck - Recommend follow up with Pam PCP in the next week to recheck CBC given chronically elevated WBCs - General Info Date of Service: 08/28/18 Admission Dx/Problem (Free Text: Vertigo Subjective Update: Daniel reports he is doing well. Has not had any episodes of dizziness since admit. Has been tolerating a general diet and ambulating without difficulty. He denies any concerns. Functional Status: Reports: Pain Controlled, Tolerating Diet, Ambulating, Urinating. Denies: New Symptoms - Review of Systems General: Reports: No Symptoms Pulmonary: Reports: No Symptoms Cardiovascular: Reports: No Symptoms Gastrointestinal: Reports: No Symptoms Musculoskeletal: Reports: No Symptoms Neurological: Reports: No Symptoms Psychiatric: Reports: No Symptoms - Patient Data Vitals - Most Recent: Last Vital Signs Temp 97.7 F 08/28/18 07:54 Pulse 72 08/28/18 07:54 Resp 16 08/28/18 07:54 BP 133/78 08/28/18 07:54 Pulse Ox 100 08/28/18 07:54 Weight - Most Recent: 146 lb 4.8 oz I&O - Last 24 hours: Intake & Output 08/27/18 08/28/18 08/28/18 22:59 06:59 14:59 Intake Total 877 Balance 877 Lab Results - Last 24 hrs: Laboratory Results - last 24 hr 08/27/18 08/27/18 08/27/18 Range/Units 11:42 11:42 11:42 WBC 17.7 H (5.0-10.0) 10^3/uL RBC 5.01 (4.50-6.00) 10^6/uL Hgb 15.9 (14.0-18.0) g/dL Hct 45.8 (40.0-54.0) % MCV 91.4 (82.0-94.0) fL MCH 31.7 (27.0-32.0) pg MCHC 34.7 (33.0-38.0) g/dL RDW Coeff of Arielle 12.8 (11.0-15.0) % Plt Count 339 (150-400) 10^3/uL Neut % (Auto) 78.9 (35-85) % Lymph % (Auto) 15.1 (10-55) % [place] % (Auto) 5.7 (0-16) % Eos % (Auto) 0.2 (0-5) % Baso % (Auto) 0.1 (0-3) % Neut # (Auto) 13.96 H (1.80-7.00) 10^3/uL Lymph # (Auto) 2.66 (1.00-4.80) 10^3/uL [place] # (Auto) 1.00 H (0.00-0.80) 10^3/uL Eos # (Auto) 0.03 (0.00-0.45) 10^3/uL Baso # (Auto) 0.02 10^3/uL PT 10.5 (9.7-12.3) SEC INR 1.02 (0.92-1.18) APTT 27.6 (23.2-32.3) SEC Sodium 141 (136-145) mEq/L Potassium 4.0 (3.5-5.0) mEq/L Chloride 106 (98-106) mEq/L Carbon Dioxide 23 D (21-32) mmol/L BUN 14 (7-18) mg/dL Creatinine 1.1 (0.7-1.3) mg/dL Est Cr Clr Drug Dosing TNP Estimated GFR (MDRD) > 60 (>=60) mL/min Glucose 93 D (75-99) mg/dL Calcium 9.0 (8.4-10.1) mg/dL Lactate Dehydrogenase 169 (100-190) U/L Creatine Kinase 79 (35-232) U/L Troponin I < 0.017 (0.00-0.06) ng/mL Med Orders - Current: Current Medications Promethazine HCl 25 mg/ Sodium (Chloride) 51 mls @ 100 mls/hr IV Q6H PRN PRN Reason: Dizziness Last Admin: 08/27/18 11:57 Dose: 100 mls/hr Lactated Ringer's (Ringers, Lactated) 1,000 mls @ 125 mls/hr IV ASDIRECTED [facility] Last Admin: 08/27/18 19:58 Dose: 125 mls/hr Ptom Meclizine (25 Mg Tab) 25 mg PO TID [facility] Last Admin: 08/28/18 07:32 Dose: 25 mg Ondansetron HCl (Zofran Odt) 4 mg PO Q4H PRN PRN Reason: nausea, able to take PO Ondansetron HCl (Zofran) 4 mg IV Q4H PRN PRN Reason: Nausea/Vomiting Promethazine HCl (Phenergan) 25 mg PO Q6H PRN PRN Reason: nausea, able to take PO Sodium Chloride (Saline Flush) 10 ml FLUSH ASDIRECTED PRN PRN Reason: Keep Vein Open Discontinued Medications Meclizine HCl (Antivert) 25 mg PO TID [facility] Last Admin: 08/27/18 14:26 Dose: Not Given - Exam General: Reports: Alert, Oriented, No Acute Distress HEENT: Reports: Pupils Equal, Pupils Reactive, EOMI, Mucous Membr. Moist/[place] Neck: Reports: Supple Lungs: Reports: Clear to Auscultation, Normal Respiratory Effort Cardiovascular: Reports: Regular Rate, Regular Rhythm GI/Abdominal Exam: Normal Bowel Sounds, Soft, Non-Tender, No Organomegaly, No Distention, No Abnormal Bruit, No Mass, Pelvis Stable Neurological: Reports: No New Focal Deficit Psy/Mental Status: Reports: Alert, Normal Affect, Normal Mood
== END 2018-08-28 09:55 | disposition home or self-care (01) ==
LOC: CC.ED 11:34 → CC.MS 12:23 → UNDOADMOB 12:29 → CC.MS 12:29
PROVIDERS: ADMIT Physician Assistant Medical; ATTEND Family Medicine
DX: R42 Dizziness and giddiness (principal); R53.1 Weakness; F17.200 Nicotine dependence, unspecified, uncomplicated
CPT/HCPCS: 36415; 70450; 71045; 80048; 80305; 81001; 82550; 83615; 84484; 85025; 85610; 85730; 93005; 96361; 96365; 97112; 99285; A9270; G0378; J2550; J7050; J7120